=== PATIENT | female | born 1990 | race American Indian/Alaskan Native ===

== ENCOUNTER 2019-07-19 13:19 | Emergency (ER) | payer SELFPAY | END 2019-07-19 17:10 | disposition home or self-care (01) | LOC: ED 13:19 | CPT/HCPCS: 71046 ==

== ENCOUNTER 2019-08-02 18:51 | Emergency (ER) | payer SELFPAY ==
--- NOTE | 2019-08-02 19:33 | Emergency Department Report ---
Blank Doc - Documentation Documentation: 29-year-old female that presents with weakness and unable to control blood glu cose. This initial assessment/diagnostic orders/clinical plan/treatment(s) is/are subject to change based on patient's health status, clinical progression and re- assessment by fellow clinical providers in the ED. Further treatment and workup at subsequent clinical providers discretion. Patient/guardians urged not to elope from the ED as their condition may be serious if not clinically assessed and managed. Initial orders include: 1- Patient sent to MAIN ED for further evaluation and treatment 2- UA 3- labs
[2019-08-02 20:32] LABS: Basophils % (Auto) 0.8 % (0.0-1.8); Eosinophils % (Auto) 0.6 % (0.0-4.3); Hematocrit 39.2 % (30.3-42.9); Hemoglobin 13.3 gm/dl (10.1-14.3); Lymphocytes % (Auto) 40.3 % (13.4-35.0); Mean Corpuscular HGB Conc 34 % (30-34); Mean Corpuscular Volume 81 fl (79-97); Monocytes # (Auto) 0.6 K/mm3 (0.0-0.8); Monocytes % (Auto) 12.5 % (0.0-7.3); Platelet Count 329 K/mm3 (140-440); Red Blood Count 4.88 M/mm3 (3.65-5.03); Red Cell Distribution Width 13.3 % (13.2-15.2)
[2019-08-02 20:51] LABS: BUN/Creatinine Ratio 9; Blood Urea Nitrogen 7 mg/dL (7-17); Calcium 9.6 mg/dL (8.4-10.2); Hemolysis Index 17
[2019-08-02 21:30] LABS: Bilirubin,Urine NEG (Negative); Blood,Urine LG (Negative); Color,Urine Yellow (Yellow); Mucus,Urine FEW /HPF; Urobilinogen,Urine < 2.0 mg/dL (<2.0)
[2019-08-02] MEDS ORDERED: FLUCONAZOLE 100 MG TAB PO ONE (21:43)
[2019-08-02] MEDS ORDERED: NITROFURANTOIN MONOHYD/M-CRYST 100 MG CAP PO ONE (21:44)
--- NOTE | 2019-08-02 22:06 | Emergency Department Report ---
HPI - General Chief Complaint: Hyperglycemia Time Seen by Provider: 08/02/19 19:31 - HPI HPI: 29-year-old -German female presents to the emergency department with a complaint of hyperglycemia. The patient has a history of gee-ytrbyfg-lcjnzgpmp diabetes and was on metformin but she stopped taking it for about 7 months when her sugar was within the normal range. However over the past 2 weeks she has had very elevated blood sugar despite the fact that she restarted herself on the metformin in May. She is taking 500 mg twice daily. She complains of some polyuria and polydipsia. She denies any fever, abdominal pain, nausea, vomiting, shortness of breath. She does not have a primary care physician. ED Past Medical Hx - Past Medical History Previous Medical History?: Yes Hx Diabetes: Yes - Surgical History Past Surgical History?: No - Social History Smoking Status: Never Smoker - Medications Home Medications: Home Medications Medication Instructions Recorded Confirmed Last Taken Type ALBUTEROL Inhaler (OR & NICU) 2 puff IH QID PRN #8.5 gram 07/19/19 Unknown Rx [ProAir HFA Inhaler] Oseltamivir [Tamiflu] 75 mg PO BID 5 Days #10 cap 07/19/19 Unknown Rx Nitrofurantoin Amador/M-Cryst 100 mg PO Q12HR #14 capsule 08/03/19 Unknown Rx [Macrobid CAP] metFORMIN [Glucophage] 500 mg PO BID #60 tablet 08/03/19 Unknown Rx ED Review of Systems ROS: Stated complaint: HIGH BLOOD SUGAR Other details as noted in HPI Comment: All other systems reviewed and negative Constitutional: denies: chills, fever Eyes: denies: eye pain, eye discharge ENT: denies: ear pain, throat pain Respiratory: denies: cough, shortness of breath Cardiovascular: denies: chest pain, palpitations Endocrine: increased thirst, increased urine Gastrointestinal: denies: abdominal pain, vomiting Genitourinary: frequency. denies: hematuria Musculoskeletal: denies: back pain, arthralgia Skin: denies: rash, lesions Neurological: denies: headache, weakness Physical Exam - Physical Exam Vital Signs: Vital Signs 08/02/19 08/02/19 18:57 21:59 Temperature 98.6 F 98.2 F Pulse Rate 109 H 94 H Respiratory 16 16 Rate Blood Pressure 130/87 Blood Pressure 135/74 [Left] O2 Sat by Pulse 95 97 Oximetry Physical Exam: GENERAL: The patient is well-developed well-nourished. HEENT: Normocephalic. Atraumatic. Patient has moist mucous membranes. EYES: Extraocular motions are intact. NECK: Supple. Trachea is midline. CHEST/LUNGS: Clear to auscultation. There is no respiratory distress noted. HEART/CARDIOVASCULAR: Regular. There is no tachycardia. There is no murmur. ABDOMEN: Abdomen is soft, nontender. Patient has normal bowel sounds. Obese habitus. SKIN:Skin is warm and dry. . NEURO: The patient is awake, alert, and oriented. The patient is cooperative. The patient has no focal neurologic deficits. Normal speech. MUSCULOSKELETAL: There is no tenderness or deformity. There is no evidence of acute injury. ED Course Vital Signs 08/02/19 08/02/19 18:57 21:59 Temperature 98.6 F 98.2 F Pulse Rate 109 H 94 H Respiratory 16 16 Rate Blood Pressure 130/87 Blood Pressure 135/74 [Left] O2 Sat by Pulse 95 97 Oximetry ED Medical Decision Making - Lab Data Result diagrams: 08/02/19 19:41 08/02/19 19:41 - Medical Decision Making This patient presents to the emergency department with a complaint of uncontrolled blood sugar despite some recent compliance with her metformin. Blood sugar came back at about 380. No signs of diabetic ketoacidosis as there is no elevation in her anion gap patient was given a liter of IV fluid and a small dose of IV insulin. Her repeat Accu-Chek was down to 230. Her urinalysis showed a mild urinary tract infection. Patient will be placed on Macrobid. The patient asked for a Diflucan for a possible yeast infection. She denies any significant discharge or any abdominal or pelvic pain. Vital signs stable throughout her ED course. The patient will be discharged home with a refill of her metformin, some referrals for primary care physicians at clinics. We discussed staying away from foods that are high in sugar, carbohydrates and starches and keeping a blood sugar log. - Differential Diagnosis DKA, HHNK Critical Care Time: No Critical care attestation.: If time is entered above; I have spent that time in minutes in the direct care of this critically ill patient, excluding procedure time. ED Disposition Clinical Impression: Hyperglycemia UTI (urinary tract infection) Qualifiers: Urinary tract infection type: acute cystitis Hematuria presence: without hematuria Qualified Code(s): N30.00 - Acute cystitis without hematuria Disposition: TO HOME OR SELFCARE Is pt being admited?: No Condition: Stable Instructions: Urinary Tract Infection in Women (ED), Diabetic Hyperglycemia (ED) Additional Instructions: Please follow up with a primary care physician in the next few days. Continue taking your metformin as previously prescribed. Try and stay away from foods that are high in carbohydrates, starches and sugar. Keep a blood sugar log. Take the antibiotics as prescribed. Return to the emergency Department with any worsening of her symptoms or any acute distress. Prescriptions: metFORMIN [Glucophage] 500 mg PO BID #60 tablet Nitrofurantoin Amador/M-Cryst [Macrobid CAP] 100 mg PO Q12HR #14 capsule Referrals: PRIMARY MD CHRIS [Primary Care Provider] - 2-3 Days CHRISTINE PARRY MD [Staff Physician] - 2-3 Days [facility] [Outside] - 2-3 Days Time of Disposition: 00:27
[2019-08-02] MEDS ORDERED: SODIUM CHLORIDE 0.9% 1000 ML 1,000 ML ONE (22:20)
[2019-08-02] MEDS ORDERED: INSULIN REGULAR, HUMAN 100 UNITS/1 ML IV ONE (22:26)
[2019-08-02] MEDS ORDERED: SODIUM CHLORIDE 0.9% 1000 ML 1,000 ML IV ONE (22:26)
[2019-08-03 00:44] VITALS: BP 128/65
== END 2019-08-03 00:48 | disposition home or self-care (01) ==
LOC: ED 18:51
DX: E11.65 Type 2 diabetes mellitus with hyperglycemia (principal); N39.0 Urinary tract infection, site not specified; Z79.899 Other long term (current) drug therapy; Z79.84 Long term (current) use of oral hypoglycemic drugs
CPT/HCPCS: 36415; 80048; 81001; 82805; 82962; 84703; 85025; 87086; 96361; 96374; 99283; J7030; J1815

== ENCOUNTER 2022-01-10 15:30 | Emergency (ER) | payer SELFPAY ==
[2022-01-10 17:20] LABS: Bilirubin,Urine NEG (Negative); Blood,Urine NEG (Negative); Color,Urine Straw (Yellow); Protein,Urine <15 mg/dL mg/dL (Negative); Urobilinogen,Urine < 2.0 mg/dL (<2.0)
[2022-01-10 17:24] LABS: HCG Qualitative,Urine Negative (Negative); RBC,Urine < 1.0 /HPF (0.0-6.0); WBC,Urine < 1.0 /HPF (0.0-6.0)
[2022-01-10 17:42] LABS: Mucus,Urine FEW /HPF
== END 2022-01-11 06:09 | disposition left against medical advice (07) ==
LOC: ED 15:30
DX: N28.9 Disorder of kidney and ureter, unspecified (principal); Z53.21 Procedure and treatment not carried out due to patient leaving prior to being seen by health care provider
CPT/HCPCS: 81001; 81025